=== PATIENT | female | born 1935 | race Caucasian/White ===

== ENCOUNTER 2017-04-28 17:56 | Emergency (ER) | payer OTHER ==
--- NOTE | 2017-04-28 18:03 | ED Physician Documentation ---
General Adult - HISTORIAN Historian: patient, spouse, child - HPI Stated Complaint: fall Chief Complaint: Fall Onset: hours (1) Timing: still present Modifying Factors: none Context: none Quality: non Location: head injury wrist pain and neck pain Further Comments: no Last known Well Date: 04/28/17 Last Known Well Time: 16:00 Last known Well Code/Unknown Code: Unknown - ROS CONST: no problems CVS/RESP: none. denies: chest pain, shortness of breath, cough GI/: denies: abdominal pain, vomiting, nausea MS/SKIN/LYMPH: other (several abrasions on right arm wrist and forehead ) - PAST HX Immunizations: referred to PCP - SOCIAL HX Smoking History: non-smoker Alcohol Use: none Drug Use: none - FAMILY HX Family History: No - REVIEWED ASSESSMENTS Nursing Assessment Reviewed: Yes Vitals Reviewed: Yes <Sandy Arboleda - Last Filed: 04/28/17 18:13> - HPI Further Comments: yes (Patient missed step and fell on concrete step, no LOC noted, no LESLIE, no neuro defecit noted. Does complain of some wrist pain with movement. VA is normal.) - PAST HX Past History: hypertension Other History: other (PVD) Surgeries/Procedures: other (lumpectomy, arm fracture) - VITAL SIGNS Vital Signs: Vital Signs Temp Pulse Resp BP Pulse Ox 98.4 F 113 H 16 171/99 98 04/28/17 18:08 04/28/17 18:08 04/28/17 18:08 04/28/17 18:08 04/28/17 18:08 <Daniele Thomas - Last Filed: 04/28/17 21:01> - PAST HX Allergies/Adverse Reactions: Allergies Allergy/AdvReac Type Severity Reaction Status Date / Time nitrofurantoin Allergy Verified 04/28/17 18:14 macrocrystalline [From Macrodantin] Penicillins Allergy Verified 04/28/17 18:14 [id number] Reductase Allergy Verified 04/28/17 18:14 Inhibitor Sulfa (Sulfonamide Allergy Verified 04/28/17 18:14 Antibiotics) Home Medications: Ambulatory Orders Medication Instructions Recorded Acetaminophen [Tylenol Extra 1,000 mg PO QID 04/28/17 Strength] Aspirin [Adult Low Dose Aspirin EC] 162 mg PO BID 04/28/17 Dipyridamole [Persantine] 75 mg PO TID 04/28/17 Hydrochlorothiazide 25 mg PO DAILY 04/28/17 [Hydrochlorothiazide] Losartan Potassium [Cozaar] 25 mg PO DAILY 04/28/17 Metoprolol Tartrate [Lopressor] 100 mg PO BID 04/28/17 Progress - Progress Progress: 1900 Patient is still douing well, voices no neuro defecit. GCS 15/15. <Daniele Thomas - Last Filed: 04/28/17 21:01> ED Results Lab/Radiology - Lab Results Lab Results: Lab Results 04/28/17 04/28/17 19:02 19:02 WBC 9.40 K/ul K/ul (4.00-12.00) RBC 3.65 M/ul L M/ul (3.90-5.20) Hgb 12.1 g/dL g/dL (12.0-16.0) Hct 33.9 % L % (34.5-46.5) MCV 92.7 fl fl (80.0-100.0) MCH 33.0 pg pg (28.0-34.0) MCHC 35.6 g/dL g/dL (30.0-36.0) RDW 13.0 % % (11.3-14.3) Plt Count 231 K/mm3 K/mm3 (130-400) Neut % (Auto) 70.8 % % (39.0-79.0) Lymph % (Auto) 19.0 % % (16.0-50.0) [place] % (Auto) 6.2 % % (0.0-11.0) Eos % (Auto) 1.3 % % (0.0-6.8) Baso % (Auto) 0.7 (0.0-1.5) Neut # (Auto) 6.6 # k/uL # k/uL (1.4-7.7) Lymph # (Auto) 1.8 # k/uL # k/uL (0.6-4.0) [place] # (Auto) 0.6 # k/uL # k/uL (0.0-0.9) Eos # (Auto) 0.1 # k/uL # k/uL (0.0-0.6) Baso # (Auto) 0.1 # k/uL # k/uL (0.0-0.5) Reactive Lymphs % 2.1 % % (0.0-5.0) Reactive Lymphs # 0.2 # k/uL # k/uL (0.0-0.8) Sodium 137 mmol/L mmol/L (137-145) Potassium 3.6 mmol/L mmol/L (3.5-5.1) Chloride 100 mmol/L mmol/L (98-107) Carbon Dioxide 28 mmol/L mmol/L (22-30) BUN 27 mg/dL H mg/dL (7-17) Creatinine 1.20 mg/dL H mg/dL (0.52-1.04) Estimated Creat Clear 48 Est GFR ( Amer) > 60 (60 - ) Est GFR (Non-Af Amer) > 60 (60 - ) Glucose 110 mg/dL H mg/dL (74-106) Calcium 9.5 mg/dL mg/dL (8.4-10.2) Total Bilirubin 0.2 mg/dL mg/dL (0.2-1.3) AST 30 U/L U/L (15-46) ALT 30 U/L U/L (13-69) Alkaline Phosphatase 75 U/L U/L (38-126) Total Protein 7.5 g/dL g/dL (6.3-8.2) Albumin 4.0 g/dL g/dL (3.5-5.0) - Radiology Radiology Impressions: Examination: CT head without contrast History: Fall Comparison exam: None available Technique: Noncontrast head CT protocol. Findings: Ventricles and sulci are prominent, though consistent for patient age. Cerebrocerebellar parenchyma demonstrates periventricular low attenuation consistent with small vessel disease. Projecting anterior to the right frontal lobe is an area of increased attenuation - centered on image 18 of 37. No other extra axial irregularities. No evidence for mass or mass effect. No midline shift. Basal ganglia calcifications. Partial visualization of the paranasal sinuses, mastoid air cells, orbits, and skull without gross regularity. Large right frontal scalp hematoma. Streak artifact from dental hardware. Impression: Questionable focal/small subdural hematoma involving the anterior right frontal lobe. Consider neurosurgical consultation. Advanced age related changes. No acute intra parenchymal process. Large right frontal scalp hematoma Examination: Plain film wrist History: Injury Comparison exams: None available Findings: 3 views the wrist demonstrates generalized osteopenia. No cortical disruption of the distal radius or ulna. Lateral view demonstrates an avulsion off the mid carpal bone region. No soft tissue abnormalities. Impression: Posterior mid carpal bone avulsion: donor site is indeterminate by plain film sensitivity. No radial or ulnar fracture. Examination: CT cervical spine History: Fall Comparison exams: None provided Technique: CT cervical spine axial imaging with sagittal and coronal reconstruction Findings: Sagittal reconstruction demonstrates mild anterior narrowing of C6 and C7. Joint space narrowing C4/C5 with mild listhesis and angulation. Coronal reconstruction does not demonstrate locked or perched facets. Atlantoaxial degenerative changes. Axial imaging obtained from the skull base through T1 Lamina and pedicles are intact. No ossific density within the central canal. Extensive facet degenerative changes. No prevertebral soft tissue abnormality. Impression: Extensive multilevel degenerative changes. Angulation and presumed degenerative listhesis at C4/C5. Mild anterior narrowing of C6 and C7: chronicity indeterminate without older exams. If there is a concern that this may represent an acute process, this can be confirmed with MRI to assess for marrow edema. - Orders Orders: ED Orders Category Date Time Status CT BRAIN W/O CONTRAST Stat Exams 04/28/[address] C-SPINE W/O CONTRAST Stat Exams 04/28/17 Completed HAND 3 VIEWS OR MORE [RAD] Stat Exams 04/28/17 Completed WRIST 3 VIEWS OR MORE [RAD] Stat Exams 04/28/17 Completed CBC/PLATELET/DIFF Routine Lab 04/28/17 19:02 Completed CMP [CMP] Routine Lab 04/28/17 19:02 Completed Diph,Pertuss(Acell),Tet Vac/Pf [Adacel] Med 04/28/17 18:46 Discontinued 0.5 ml IM .ONCE ONE <Daniele Thomas - Last Filed: 04/28/17 21:01> General Adult Physical Exam - PHYSICAL EXAM GENERAL APPEARANCE: no distress EENT: NANY NECK: normal inspection, other (pain with palpation on right lateral side ) RESPIRATORY: no resp distress, chest non-tender, breath sounds normal CVS: reg rate & rhythm, heart sounds normal, equal pulses, murmur ABDOMEN: soft, no organomegaly, normal bowel sounds, no distension, non-tender BACK: normal inspection SKIN: warm/dry, other (abrasion on right lower leg, abrasion and large bruise on right hand/wrist, forehead right sided with large knot with abrasion ) NEURO: oriented X3, CN's nml as tested, motor nml, sensation nml, mood/affect nml, cognition normal <Sandy Arboleda - Last Filed: 04/28/17 18:13> - PHYSICAL EXAM EENT: pharynx normal, other (large right hematoma, with abrasion) SKIN: other (abrasion on right lower leg, abrasion and large bruise on right hand/wrist, forehead right sided with large knot with abrasion , mild abrasion on right knee) EXTREMITIES: non-tender, tenderness (keiry the right wrist) NEURO: other (Glascow comma scale 15/15) <Daniele Thomas - Last Filed: 04/28/17 21:01> Discharge <Sandy Arboleda - Last Filed: 04/28/17 18:13> Decision to Admit: [id number] Date of Decison to Admit: 04/28/17 Decision Time: 19:47 <Daniele Thomas - Last Filed: 04/28/17 21:01> Clincal Impression: Subdural hematoma Referrals: Primary Doctor,No [Primary Care Provider] - 2 Days Condition: Stable
[2017-04-28] MEDS ORDERED: DIPH,PERTUSS(ACELL),TET VAC/PF 0.5 ML DISP.SYRIN IM ONE (18:46)
--- NOTE | 2017-04-28 18:54 | Diagnostic Imaging Report ---
[facility] [address] [facility].[address] [address] Report Submission Date: Apr 28, 2017 6:52:30 PM CDT Patient Study Name: SERGEY ROSE Date: Apr 28, 2017 6:27:13 PM CDT Modality Type: CR Gender: F Description: UPPER EXTREMITY : 37 Institution: [facility] Physician: SHAD ROSAS Examination: Plain film wrist History: Injury Comparison exams: None available Findings: 3 views the wrist demonstrates generalized osteopenia. No cortical disruption of the distal radius or ulna. Lateral view demonstrates an avulsion off the mid carpal bone region. No soft tissue abnormalities. Impression: Posterior mid carpal bone avulsion: donor site is indeterminate by plain film sensitivity. No radial or ulnar fracture. Electronically signed on Apr 28, 2017 6:52:30 PM CDT by: Suleiman GOODEN
--- NOTE | 2017-04-28 18:56 | Diagnostic Imaging Report ---
[facility] [address] [facility].[address] [address] Report Submission Date: Apr 28, 2017 6:54:01 PM CDT Patient Study Name: SERGEY ROSE Date: Apr 28, 2017 6:23:07 PM CDT Modality Type: CR Gender: F Description: UPPER EXTREMITY : 37 Institution: [facility] Physician: SHAD ROSAS Examination: Plain film wrist History: Injury Comparison exams: None available Findings: 3 views the wrist demonstrates generalized osteopenia. No cortical disruption of the distal radius or ulna. Lateral view demonstrates an avulsion off the mid carpal bone region. Articular degenerative changes. No soft tissue abnormalities. Impression: Posterior mid carpal bone avulsion: donor site is indeterminate by plain film sensitivity. No radial or ulnar fracture. Electronically signed on Apr 28, 2017 6:54:01 PM CDT by: Suleiman GOODEN
[2017-04-28 19:07] LABS: BASOPHILS % 0.7 (0.0-1.5); EOSINOPHILS % 1.3 % (0.0-6.8); MEAN CORPUSCULAR VOLUME 92.7 fl (80.0-100.0); MONOCYTES % 6.2 % (0.0-11.0); NEUTROPHILS # 6.6 # k/uL (1.4-7.7)
[2017-04-28 19:23] LABS: eGFR (African) > 60; eGFR (Non-African) > 60
--- NOTE | 2017-04-28 19:26 | Diagnostic Imaging Report ---
[facility] [address] Counts Include [address] Beds At [facility] [address] [place], [place]. [address] Report Submission Date: Apr 28, 2017 7:01:32 PM CDT Patient Study Name: SERGEY ROSE Date: Apr 28, 2017 6:19:42 PM CDT Modality Type: CT\SR Gender: F Description: CT C-SPINE W/O CONTRAS : 39 Institution: [facility] Physician: SHAD ROSAS Examination: CT cervical spine History: Fall Comparison exams: None provided Technique: CT cervical spine axial imaging with sagittal and coronal reconstruction Findings: Sagittal reconstruction demonstrates mild anterior narrowing of C6 and C7. Joint space narrowing C4/C5 with mild listhesis and angulation. Coronal reconstruction does not demonstrate locked or perched facets. Atlantoaxial degenerative changes. Axial imaging obtained from the skull base through T1 Lamina and pedicles are intact. No ossific density within the central canal. Extensive facet degenerative changes. No prevertebral soft tissue abnormality. Impression: Extensive multilevel degenerative changes. Angulation and presumed degenerative listhesis at C4/C5. Mild anterior narrowing of C6 and C7: chronicity indeterminate without older exams. If there is a concern that this may represent an acute process, this can be confirmed with MRI to assess for marrow edema. Electronically signed on Apr 28, 2017 7:01:32 PM CDT by: Suleiman GOODEN
--- NOTE | 2017-04-28 19:26 | Diagnostic Imaging Report ---
[facility] [address] [facility] [address] [place], [place]. [address] Report Submission Date: Apr 28, 2017 7:09:34 PM CDT Patient Study Name: SERGEY ROSE Date: Apr 28, 2017 6:17:26 PM CDT Modality Type: CT\SR Gender: F Description: CT BRAIN W/O CONTRAST : 37 Institution: [facility] Physician: SHAD ROSAS Examination: CT head without contrast History: Fall Comparison exam: None available Technique: Noncontrast head CT protocol. Findings: Ventricles and sulci are prominent, though consistent for patient age. Cerebrocerebellar parenchyma demonstrates periventricular low attenuation consistent with small vessel disease. Projecting anterior to the right frontal lobe is an area of increased attenuation - centered on image 18 of 37. No other extra axial irregularities. No evidence for mass or mass effect. No midline shift. Basal ganglia calcifications. Partial visualization of the paranasal sinuses, mastoid air cells, orbits, and skull without gross regularity. Large right frontal scalp hematoma. Streak artifact from dental hardware. Impression: Questionable focal/small subdural hematoma involving the anterior right frontal lobe. Consider neurosurgical consultation. Advanced age related changes. No acute intra parenchymal process. Large right frontal scalp hematoma. Discussed findings with Dr. Thomas at 1907 hours on 28 April 2017 CDT Electronically signed on Apr 28, 2017 7:09:34 PM CDT by: Suleiman GOODEN
[2017-04-28 19:58] VITALS: BP 162/88
== END 2017-04-28 19:50 ==
LOC: ED 17:56
DX: S06.5X0A Traumatic subdural hemorrhage without loss of consciousness, initial encounter (principal); W19.XXXA Unspecified fall, initial encounter; Y93.9 Activity, unspecified; Y99.9 Unspecified external cause status
CPT/HCPCS: 70450; 72125; 73110; 73130; 80053; 85025; 90471; 90715; 99283